=== PATIENT | female | born 1955 | race Caucasian/White ===

== ENCOUNTER 2020-05-24 10:45 | Inpatient (IN) | payer MEDICAID ==
[~2020-05-24] VITALS: Ht 160 cm; Wt 130.2 kg
--- NOTE | 2020-05-24 10:45 | NUR ---
To ER bed 3 for COVID-19 isolation, AOX4, WILLETT, respiration:easy, speaks full sentences comfortably, NAD, pending MD evaluation. Comfort & safety measures maintained. Head of bed elevated
--- NOTE | 2020-05-24 10:54 | NUR ---
pt non-cooperative, yelling, refusing interventions to be done.
--- NOTE | 2020-05-24 11:00 | NUR ---
Pt unable to provide any information about home medications.
[2020-05-24 11:38] LABS: BASOPHILS % (AUTO) 0.3 % (0.0-2.0); EOSINOPHILS % (AUTO) 0.3 % (0.0-7.0); HEMATOCRIT 36.7 % (31.2-41.9); LYMPHOCYTES # (AUTO) 0.5 K/uL (20.0-40.0); LYMPHOCYTES % (AUTO) 19.2 % (20.5-51.5); MEAN CORPUSCULAR HEMOGLOBIN 27.4 uug (24.7-32.8); MEAN CORPUSCULAR HGB CONC 33 g/dL (32.3-35.6); MEAN CORPUSCULAR VOLUME 83.7 fL (75.5-95.3); MONOCYTES # (AUTO) 0.2 K/uL (2.0-10.0); MONOCYTES % (AUTO) 9.7 % (0.0-11.0); NEUTROPHILS # (AUTO) 1.8 K/uL (1.8-8.9); NEUTROPHILS % (AUTO) 70.5 % (38.5-71.5); PLATELET COUNT (AUTO) 122 K/uL (179-408); RED BLOOD CELL COUNT(AUTO) 4.39 MIL/uL (3.63-4.92); WHITE BLOOD COUNT (AUTO) 2.5 K/uL (3.8-11.8)
[2020-05-24 11:49] LABS: CREATININE 1.6 mg/dL (0.6-1.3)
--- NOTE | 2020-05-24 11:57 | NUR ---
pt refuses to be heplocked. notified.
[2020-05-24 12:01] LABS: BILIRUBIN,DIRECT 0.1 mg/dL (0.0-0.2); BILIRUBIN,TOTAL 0.3 mg/dL (0.2-1.0)
--- NOTE | 2020-05-24 12:05 | NUR ---
called fence manufacture supervisor for picc/mid line per md order.
[2020-05-24] MEDS ORDERED: levoFLOXacin 500 MG/D5W 100ML PIGGYBACK IV ONE (12:15)
[2020-05-24] MEDS ORDERED: FUROSEMIDE 40 MG/4 ML VIAL IV ONE ×2 (12:15→13:15)
[2020-05-24] MEDS ORDERED: POTASSIUM CHLORIDE 20 MEQ TAB.PRT.SR PO ONE (12:15)
[2020-05-24] MEDS ORDERED: PIPERACILLIN SODIUM/TAZOBACTAM 3.375 G in IV DEXTROSE 5% 50 ML IV ONE (12:15)
[2020-05-24] MEDS ORDERED: DILTIAZEM HCL 25 MG IV IV ONE ×2 (12:15→17:00)
--- NOTE | 2020-05-24 12:30 | NUR ---
MARY watson at bedside to place the central line.
[2020-05-24] MEDS ORDERED: LIDOCAINE HCL 2% 20 ML VIAL ONE (12:43)
[2020-05-24] MEDS ORDERED: levoFLOXacin 500 MG/D5W 100 ML ONE (13:05)
[2020-05-24] MEDS ORDERED: POTASSIUM CHLORIDE 20 MEQ TAB.PRT.SR ONE (13:05)
[2020-05-24] MEDS ORDERED: FUROSEMIDE 40 MG/4 ML VIAL ONE (13:05)
[2020-05-24] MEDS ORDERED: DILTIAZEM HCL 25 MG IV ONE ×2 (13:06→15:16)
[2020-05-24] MEDS ORDERED: PIPERACILLIN/TAZOBACTAM/D5W 50 ML IV ONE (13:06)
[2020-05-24] MEDS ORDERED: ASPIRIN EC 81 MG TABLET.DR PO SCH (13:15)
[2020-05-24] MEDS ORDERED: MORPHINE SULFATE 2 MG/1 ML DISP.SYRIN ONE (13:27)
[2020-05-24] MEDS ORDERED: MORPHINE SULFATE 2 MG/1 ML DISP.SYRIN IV ONE (13:30)
[2020-05-24] MEDS ORDERED: ASPIRIN EC 81 MG TABLET.DR PO ONE (13:37)
[2020-05-24] MEDS ORDERED: ONDANSETRON 4 MG/2 ML VIAL IV PRN (14:00)
[2020-05-24] MEDS ORDERED: Z GUARD REMEDY PASTE 57 GM TUBE TOP PRN (14:00)
--- NOTE | 2020-05-24 14:00 | NUR ---
pt removing the pulse ox constantly, making it difficult to get accurate reading, based on the best reading waveform at this time, ra sat 93%, placed pt on nc 3litre. pt agreed to keep it on, improved the pulse ox to 98%.
--- NOTE | 2020-05-24 14:00 | NUR ---
pt accepted to tele, report given, transfer pending on elevator not working. supervisor locomotive aware.
[2020-05-24] MEDS ORDERED: NITROGLYCERIN OINT 1 GM PACKET TP ONE (14:06)
[2020-05-24] MEDS ORDERED: NITROGLYCERIN OINT 1 GM PACKET TP SCH (14:15)
--- NOTE | 2020-05-24 14:28 | NUR ---
pt keeps removing the monitor leads after being explained multiple times that it is crucial for her to be on monitoring and evaluation advisor.
--- NOTE | 2020-05-24 14:55 | NUR ---
checked on pt, found pt on her own wheelchair, trying to leave the isolation room. called nils kitchen at [phone], tried to reorient the pt.
--- NOTE | 2020-05-24 15:05 | NUR ---
code kitchen cancelled. pt agreed to go back to bed and be on monitor. pt gettting frustrated on being in er room, explained that pt will be transfered when the elevator is fixed.
[2020-05-24] MEDS ORDERED: DILTIAZEM HCL IV 125 MG in IV NORMAL SALINE 100 ML IV PRN ×2 (15:15→19:30)
--- NOTE | 2020-05-24 15:55 | NUR ---
visully checked on pt numerous time, providing comfort and hygiene care.
[2020-05-24 16:00] VITALS: BP 140/76
--- NOTE | 2020-05-24 16:00 | NUR ---
transfered pt to floor in stable condition, following hospital covid-19 guidelines. all the belongings including the wheelchair sent up to pt room.
[2020-05-24] MEDS ORDERED: LIDOCAINE HCL 2% 20 ML VIAL IJ ONE (16:30)
[2020-05-24] MEDS: PIPERACILLIN SODIUM/TAZOBACTAM 3.375 G in IV DEXTROSE 5% 50 ML IV SCH ×2 (18:33→23:09)
[2020-05-24] MEDS: MORPHINE SULFATE 2 MG/1 ML DISP.SYRIN IV PRN ×2 (18:33→23:12)
--- NOTE | 2020-05-24 19:00 | NUR ---
Pt. refusing to be put on tele monitor. Pt. refusing to have body checked for initial skin check. Educated pt. on risks and benefits. Attempted multiple times throughout shift. Pt. still refused and verbalized understanding of importance. electronic equipment set up operator aware. Central line in R groin triple lumen all lumens patent and flushing well. pt. on 2 L saturating at 98%. Safety measures in place. call light within reach. will endorse to PM nurse.
--- NOTE | 2020-05-24 19:30 | NUR ---
RECEIVED PT AWAKE, ALERT AND ORIENTEDX4. PT REFUSING HER HEART MONITOR AND SKIN CHECK. PT REFUSE FOR BLOOD PRESSURE CHECK. PT STATING: DON'T WANT IT! IT HURTS!". EDUCATE THE PT REGARDING SKIN CHECK PROTOCOL AND THE VITAL SIGNS NEED TO DONE TO ASSESS PT MORE. CHARGE NURSE AWARE. AWARE. SAFETY AND COMFORT PROVIDED. WILL CONTINUE TO MONITOR.
[2020-05-24] MEDS: HEPARIN SODIUM,PORCINE 5,000 UNITS/ML VIAL SQ SCH (21:53)
[2020-05-25 00:18] VITALS: BP 142/99
[2020-05-25] MEDS: ZOLPIDEM 5 MG TABLET PO PRN ×2 (01:08→21:22)
[2020-05-25 04:30] VITALS: BP 128/99
[2020-05-25] MEDS: PIPERACILLIN SODIUM/TAZOBACTAM 3.375 G in IV DEXTROSE 5% 50 ML IV SCH ×4 (05:02→23:43)
[2020-05-25] MEDS: MORPHINE SULFATE 2 MG/1 ML DISP.SYRIN IV PRN ×4 (05:36→22:46)
--- NOTE | 2020-05-25 06:16 | NUR ---
PT SLEPT INTERMITTENTLY. IV INTACT. PRESCRIBED MEDICATION GIVEN AND PT TOLERATED IT WELL. TRIED SEVERAL TIMES TO PUT THE THE PT ON HEART MONITOR BUT PT REFUSED STILL. ENCOURAGE PT TO CALL STAFF IF SHE WILL GO TO THE RESTROOM. PT STATED" SHE DOESN'T WANT TO WALK AND WE COULD JUST CLEAN HER IN THE BED." PT AWARE THAT WE NEED A URINE SAMPLE FROM HER. MORPHINE WS GIVEN AT 2312H. AFTER AN HOUR, PT PAIN SCALE SUBSIDED AND PT RESTING COMFORTABLY. PT GIVEN 0536H MORPHINE FOR 8/10 PAIN SCALE FOR GENERALIZED PAIN, AFTER 30 MINUTES PT SAID IT HELPS A BIT FROM 8/10 TO 5/10. PT KEEP ON REFUSING FOR VITAL SIGNS AND BLOOD. PT JUST NEED TO BE EDUCATED AND SHE WILL OBLIGE AND COOPERATE ON HER CARE. SAFETY AND COMFORT PROVIDED. ALL NEEDS ARE MET. WILL ENDORSE TO INCOMING NURSE FOR CONTINUITY OF CARE.
[2020-05-25 06:45] LABS: BASOPHILS % (AUTO) 0.3 % (0.0-2.0); EOSINOPHILS % (AUTO) 1.9 % (0.0-7.0); HEMATOCRIT 35.8 % (31.2-41.9); HEMOGLOBIN 11.8 g/dL (10.9-14.3); LYMPHOCYTES # (AUTO) 0.8 K/uL (20.0-40.0); LYMPHOCYTES % (AUTO) 37.8 % (20.5-51.5); MEAN CORPUSCULAR HEMOGLOBIN 27.4 uug (24.7-32.8); MEAN CORPUSCULAR HGB CONC 33 g/dL (32.3-35.6); MEAN CORPUSCULAR VOLUME 83.2 fL (75.5-95.3); MONOCYTES # (AUTO) 0.3 K/uL (2.0-10.0); MONOCYTES % (AUTO) 11.7 % (0.0-11.0); NEUTROPHILS % (AUTO) 48.3 % (38.5-71.5); PLATELET COUNT (AUTO) 122 K/uL (179-408); WHITE BLOOD COUNT (AUTO) 2.2 K/uL (3.8-11.8)
[2020-05-25 07:02] LABS: BILIRUBIN,TOTAL 0.4 mg/dL (0.2-1.0); CREATININE 1.5 mg/dL (0.6-1.3); MAGNESIUM 1.6 mg/dL (1.8-2.4); PHOSPHOROUS 3.5 mg/dL (2.5-4.9); POTASSIUM 2.9 mmol/L (3.5-5.1); TOTAL PROTEIN, SERUM 7.5 g/dL (6.4-8.2)
--- NOTE | 2020-05-25 07:30 | NUR ---
Received patient resting in bed. No signs of respiratory distress noted, patient is on 2 L of oxygen nasal cannula. Patient IV is a central line triple lumen. Patient reports pain of 9/10, will check eMAR for pain medication and administer as prescribed. Patient is on isolation for Covid 19. Safety precautions in place, bed in the lowest position, locked with alarm activated. Call light and belongings are within reach. Will continue to monitor and observe.
[2020-05-25 07:37] LABS: THYROID STIMULATING HORMONE 0.964 mIU/mL (0.358-3.740)
[2020-05-25] MEDS ORDERED: POTASSIUM CHLORIDE 20 MEQ POWDER PACKET PO ONE (08:15)
[2020-05-25] MEDS: ASPIRIN EC 81 MG TABLET.DR PO SCH (08:55)
[2020-05-25] MEDS: HEPARIN SODIUM,PORCINE 5,000 UNITS/ML VIAL SQ SCH ×2 (08:56→21:00)
[2020-05-25] MEDS: MAGNESIUM SULFATE/D5W 100 ML IV SCH ×2 (08:58→10:22)
[2020-05-25] MEDS: DILTIAZEM HCL CD 120 MG CAP.SR.24H PO SCH (09:14)
[2020-05-25] MEDS ORDERED: ALBUTEROL SULFATE 2.5 MG/ 0.5 ML NEBU NEB PRN (10:30)
--- NOTE | 2020-05-25 11:20 | NUR ---
SW contacted charge nurse Trang in order to arrange a ZOOM session to complete a marriage and family social worker assessment. SW was informed that patient's nurse was busy with a patient at this time, and would call this SW back to coordinate the ZOOM session. SW will follow-up if SW does not receive a call back.
[2020-05-25] MEDS ORDERED: levoFLOXacin 500 MG/D5W 500 MG in PREMIXED 1 EACH IV SCH (12:00)
[2020-05-25] MEDS ORDERED: LEVOFLOXACIN/D5W 250 MG in PREMIX 1 EA IV SCH (12:00)
[2020-05-25 12:02] VITALS: BP 138/90
--- NOTE | 2020-05-25 14:03 | NUR ---
Patient's nurse Yola set up a ZOOM session with this SW. Patient was awake and lying down in her bed. Patient's nurse introduced this SW to the patienet and SW attempted to complete a social problems specialist assessment via ZOOM, but patient stated "I don't want to talk to her". SW explained that SW was there to assess her needs and see if she had any questions/concerns about her care and about community resources, but patient once again stated "I don't want to talk to you". SW acknowledged patient's response and choice. SW informed the patient that if the patient changed her mind and wanted to speak with a SW, that she could let her nurse know. Patient expressed understanding. Per patient's medical records, patient is homeless and was staying at the [facility]. Patient is COVID positive. HAMIDA informed the patient's nurse Yola that when patient was ready for discharge, the patient would need to return to the [facility], and that the homeless discharge protocol would need to be followed. Yola expressed understanding.
[2020-05-25 15:34] VITALS: BP 147/96
--- NOTE | 2020-05-25 19:52 | NUR ---
left patient resting in bed. No signs of respiratory distress noted, patient is on 2 L of oxygen nasal cannula. Patient IV is a central line triple lumen. All medications given as ordered. Patient is on isolation for Covid 19. Safety precautions in place, bed in the lowest position, locked with alarm activated. Call light and belongings are within reach. Will endorse to oncoming nurse
--- NOTE | 2020-05-25 20:00 | NUR ---
PATIENT RECEIVED INTO CARE, LAYING IN BED, RESTING COMFORTABLY. PATIENT IS ALERT/ORIENTED X3 AND REQUESTING "MORPHINE SHOT" FOR UPSET STOMACH AND HEADACHE. THIS NURSE EXPLAINED THAT MORPHINE IS FOR SEVERE PAIN AND NOT FOR UPSET STOMACH/HEADACHE AND THAT NEXT PAIN MEDICATION IS NOT DUE UNTIL 2200H. PATIENT THEN REQUESTED TYLENOL AND NURSE ADVISED PATIENT THAT SHE WILL BE ABLE TO RECEIVE TYLENOL. ALL SAFETY, ISOLATION, AND FALL PRECAUTION MEASURES ARE IN PLACE. CALL LIGHT AND PERSONAL ITEMS ARE WITHIN REACH AT ALL TIMES. WILL CONTINUE TO MONITOR AND ASSESS.
[2020-05-25 20:21] VITALS: BP 128/77
--- NOTE | 2020-05-25 21:05 | NUR ---
PATIENT REFUSED 2100H HEPARIN. THIS NURSE EXPLAINED RISKS/BENEFITS 3X BUT PATIENT STILL REFUSED.
[2020-05-25] MEDS: ACETAMINOPHEN 325 MG TABLET PO PRN (21:22)
[2020-05-26 04:30] VITALS: BP 165/98
[2020-05-26] MEDS: PIPERACILLIN SODIUM/TAZOBACTAM 3.375 G in IV DEXTROSE 5% 50 ML IV SCH ×2 (05:05→12:00)
--- NOTE | 2020-05-26 05:31 | NUR ---
PATIENT SLEPT THROUGHOUT NIGHT WITH NO FURTHER COMPLAINTS OF PAIN OR DISCOMFORT AFTER RECEIVING PRESCRIBED ANALGESIC VIA RIGHT FEMORAL CENTRAL LINE. THIS NURSE REMINDED PATIENT TO USE CALL LIGHT WHEN NEEDS ASSISTANCE IN LIEU OF YELLING AND TO REMAIN PATIENT FOR THE LUNCHROOM OPERATOR/NURSE TO COME TO HER WE MAY BE WITH OTHERS UNDER OUR CARE THAT ARE ALSO IN NEED OF HELP. ALL SAFETY, FALL, AND ISOLATION PRECAUTIONS REMAIN IN PLACE. CALL LIGHT AND PERSONAL ITEMS REMAIN WITHIN REACH.
[2020-05-26] MEDS: MORPHINE SULFATE 2 MG/1 ML DISP.SYRIN IV PRN ×2 (06:48→10:50)
[2020-05-26] MEDS: DILTIAZEM HCL CD 120 MG CAP.SR.24H PO SCH (08:19)
[2020-05-26] MEDS: ASPIRIN EC 81 MG TABLET.DR PO SCH (08:19)
[2020-05-26] MEDS: ACETAMINOPHEN 325 MG TABLET PO PRN ×2 (08:19→23:35)
[2020-05-26] MEDS: HEPARIN SODIUM,PORCINE 5,000 UNITS/ML VIAL SQ SCH ×2 (08:25→20:47)
[2020-05-26 09:13] LABS: BASOPHILS % (AUTO) 0.3 % (0.0-2.0); EOSINOPHILS % (AUTO) 0.8 % (0.0-7.0); HEMATOCRIT 35.3 % (31.2-41.9); HEMOGLOBIN 11.5 g/dL (10.9-14.3); LYMPHOCYTES # (AUTO) 0.5 K/uL (20.0-40.0); LYMPHOCYTES % (AUTO) 24.8 % (20.5-51.5); MEAN CORPUSCULAR HEMOGLOBIN 27.5 uug (24.7-32.8); MEAN CORPUSCULAR HGB CONC 33 g/dL (32.3-35.6); MEAN CORPUSCULAR VOLUME 84.2 fL (75.5-95.3); MONOCYTES # (AUTO) 0.2 K/uL (2.0-10.0); MONOCYTES % (AUTO) 8.4 % (0.0-11.0); NEUTROPHILS # (AUTO) 1.2 K/uL (1.8-8.9); NEUTROPHILS % (AUTO) 65.7 % (38.5-71.5); PLATELET COUNT (AUTO) 109 K/uL (179-408); RED BLOOD CELL COUNT(AUTO) 4.19 MIL/uL (3.63-4.92)
[2020-05-26 09:25] LABS: BILIRUBIN,TOTAL 0.6 mg/dL (0.2-1.0); CREATININE 1.4 mg/dL (0.6-1.3); TOTAL PROTEIN, SERUM 7.4 g/dL (6.4-8.2)
[2020-05-26 09:37] LABS: POTASSIUM 2.8 mmol/L (3.5-5.1)
[2020-05-26 09:38] LABS: WHITE BLOOD COUNT (AUTO) 1.8 K/uL (3.8-11.8)
--- NOTE | 2020-05-26 09:40 | NUR ---
relayed potassium 2.8 and WBC WBC 1.8 to TRUCKING SUPERVISOR Lamonte.
[2020-05-26] MEDS ORDERED: POTASSIUM CHLORIDE 20 MEQ TAB.PRT.SR PO SCH (10:00)
[2020-05-26] MEDS: POTASSIUM CHLORIDE 50 ML IV SCH ×2 (10:05→11:07)
[2020-05-26] MEDS: HYDROCODONE/APAP 5-325MG TABLET PO PRN ×3 (10:16→20:46)
[2020-05-26 11:30] VITALS: BP 141/79
--- NOTE | 2020-05-26 12:00 | NUR ---
Patient pulled her Femoral PICC line.
[2020-05-26] MEDS: POTASSIUM CHLORIDE 20 MEQ TAB.PRT.SR PO SCH ×2 (12:43→13:46)
[2020-05-26] MEDS ORDERED: AMOX-427 PO (12:48)
--- NOTE | 2020-05-26 13:17 | NUR ---
This SW informed by LUDY Foster that patient is ready for discharge. Kristin stated that she has called [facility] ([phone], [id number], [place], [address]) several times this morning, and has not been able to connect with anyone at the [facility]. Patient is homeless and COVID positive, was transferred to this hospital from [facility]. Patient would need to return to The [facility]. This SW called the [facility] Quarantine and Isolation Intake Call Center [phone] and spoke with Veronica. Veronica opened a case ticket for this patient, # [id number], and informed this SW that a health nurse would call this social sciences lecturer back with further instructions. SW will follow-up with the intake line if SW does not receive a call back. SW informed LUDY Foster and med/surg charge nurse Trang about above.
--- NOTE | 2020-05-26 13:30 | NUR ---
Placed patient on Room air, patient saturating 94-96%. No SOB noted.
--- NOTE | 2020-05-26 13:39 | NUR ---
1:28pm: received a call back from [facility] nurse Sofia Mo [phone] in response to this SW's call to the [facility] Quarantine and Isolation Intake Call Center (see previous SS note). Sofia requested patient's name, , and reason for hospitalization, and stated that she will have to look into the patient's quarantine time period to see how long the patient has been at The [facility] and if the patient still has quarantine days remaining in order to be able to return. Sofia stated that she would call this SW back with additional information.
[2020-05-26 13:44] LABS: NEUTROPHILS % (MANUAL) 83 % (42-75)
[2020-05-26 13:45] LABS: BAND % (MANUAL) 10 % (0-10); LYMPHOCYTES % (MANUAL) 5 % (20-40); MONOCYTES % (MANUAL) 2 % (2-10)
--- NOTE | 2020-05-26 13:53 | NUR ---
1:49pm: HAMIDA received a call back from [facility] nurse Sofia Mo, who stated that after speaking with Melissa Vazquez, the coordinator who is assigned to [facility], it was founded that patient had not been independent with her ADL's (which is a requirement for these placements) and therefore patient would not be able to return to the [facility]. HAMIDA informed LUDY Foster about above.
--- NOTE | 2020-05-26 15:00 | NUR ---
Patient in bed, awake and verbally responsive. no signs of distress noted. On Room Air saturating 94-96%. Pain medication given as ordered. kept clean and comfortable. Kept the call light within easy reach. Will continue to monitor.
[2020-05-26 15:32] VITALS: BP 139/79
--- NOTE | 2020-05-26 17:30 | NUR ---
Discharge was cancelled today. SW spoke with Patient. Will continue to monitor.
--- NOTE | 2020-05-26 17:35 | NUR ---
4:40pm: HAMIDA assisted LUDY Foster with trying to coordinate DC plans for this patient to be able to return to [facility], where patient had been placed by [facility] for COVID-19 quarantine period. Per Kristin, [facility] had stated that patient could not return to the [facility] because patient did not meet their eligibility criteria (see CM notes). This SW called and spoke with [facility] nurse Oj [phone] to discuss patient's return to the [facility]. Oj informed this SW that per review of patient's medical records, the physician reviewing the eligibility criteria stated that patient is not independent with her ADL's and therefore does not meet eligibility. Oj stated that she had send LUDY Foster alternate placement options of SNF's. HAMIDA explained to Oj that patient did not have a skilled need to qualify for a SNF, and requested to speak with a nurse caddy/caddie supervisor. Oj stated she will coordinate this SW's request. 5:17pm: HAMIDA received a call from [facility] Nurse Daisy Chamberlain, who is the Auto Body Repairer of the Quarantine Call Center. Daisy [phone] expressed familiarity with this case, and once again reiterated that due to patient not being independent with her ADL's, the patient does not qualify to return to The [facility]. Daisy reviewed the eligibility criteria with this SW, and stated that she would email the eligibility criteria to this SW. This SW thanked Daisy for her time. 5:30pm: HAMIDA spoke with LUDY Foster and informed her of above. LUDY Foster to speak with patient's attending physician and the patient to discuss alternate discharge plans. HAMIDA informed Director Pauly Friedman of above.
--- NOTE | 2020-05-26 18:16 | NUR ---
Patient in bed, awake, alert and verbally responsive. constantly shouting. On Room Air saturating 96%. pain medications given as ordered. Changed IV ATB to PO by Lamonte LENS EDGE GRINDER MACHINE. Kept clean and comfortable. Will endorse to Oncoming Nurse.
--- NOTE | 2020-05-26 19:20 | NUR ---
Received pt in bed, awake. Pt denies any SOB, but complains of generalized pain at 8/10. Will assess and give PRN pain medication. Pt is afebrile. V/S stable, on 3L NC saturating at 96%. Right femoral PICC line was removed by pt, per day shift nurse's report. Will request to re-insert a new one. Safety measures in place. Bed low and locked in position. Call light within reach will continue with the plan of care.
[2020-05-26 20:35] VITALS: BP 131/98
[2020-05-26] MEDS: AMOXICILLIN-CLAVUL 500-125MG TABLET PO SCH (20:46)
[2020-05-27] MEDS: HYDROCODONE/APAP 5-325MG TABLET PO PRN ×3 (02:26→12:06)
[2020-05-27 05:34] VITALS: BP 139/99
--- NOTE | 2020-05-27 06:52 | NUR ---
Pt slept intermittently through the night. Pt is awake and denies any acute distress or pain at this time. Pt is afebrile. VS stable, on 3L NC. Pain was managed effectively. Fall precaution maintained. Comfort care and needs attended. Safety measures in place. Bed low and locked in position. Call light within reach. Will endorse to the oncoming nurse accordingly.
[2020-05-27 07:48] LABS: BASOPHILS % (AUTO) 0.3 % (0.0-2.0); EOSINOPHILS % (AUTO) 1.4 % (0.0-7.0); HEMATOCRIT 36.4 % (31.2-41.9); LYMPHOCYTES # (AUTO) 0.7 K/uL (20.0-40.0); LYMPHOCYTES % (AUTO) 41.6 % (20.5-51.5); MEAN CORPUSCULAR HEMOGLOBIN 27.8 uug (24.7-32.8); MEAN CORPUSCULAR HGB CONC 33 g/dL (32.3-35.6); MEAN CORPUSCULAR VOLUME 84.2 fL (75.5-95.3); MONOCYTES # (AUTO) 0.2 K/uL (2.0-10.0); NEUTROPHILS # (AUTO) 0.8 K/uL (1.8-8.9); NEUTROPHILS % (AUTO) 45.7 % (38.5-71.5); PLATELET COUNT (AUTO) 117 K/uL (179-408); RED BLOOD CELL COUNT(AUTO) 4.32 MIL/uL (3.63-4.92)
[2020-05-27 07:53] LABS: CREATININE 1.2 mg/dL (0.6-1.3); MAGNESIUM 2.3 mg/dL (1.8-2.4); PHOSPHOROUS 3.3 mg/dL (2.5-4.9); POTASSIUM 3.9 mmol/L (3.5-5.1)
[2020-05-27 08:00] VITALS: BP 153/101
[2020-05-27] MEDS: ASPIRIN EC 81 MG TABLET.DR PO SCH (08:12)
[2020-05-27] MEDS: AMOXICILLIN-CLAVUL 500-125MG TABLET PO SCH ×2 (08:12→20:15)
[2020-05-27] MEDS: DILTIAZEM HCL CD 120 MG CAP.SR.24H PO SCH (08:12)
[2020-05-27] MEDS: ACETAMINOPHEN 325 MG TABLET PO PRN ×2 (08:13→17:49)
[2020-05-27] MEDS: HEPARIN SODIUM,PORCINE 5,000 UNITS/ML VIAL SQ SCH ×2 (08:14→20:18)
--- NOTE | 2020-05-27 08:55 | NUR ---
Received pt. screaming yelling and demanding food, pain medication, and repeating statements over and over. As reported pt. with no IV access since yesterday noon. Awaiting picc line rn. Patient educated stone polisher hand light use, her response was throwing call light on the floor, pt's room found soiled with stool all over the floor and side rails. Patient's needs taken care of and room cleaned, pt now resting quietly. Will continue with care plan.
[2020-05-27 09:00] LABS: WHITE BLOOD COUNT (AUTO) 1.7 K/uL (3.8-11.8)
[2020-05-27 11:30] VITALS: BP 149/89
[2020-05-27] MEDS ORDERED: LORAZEPAM 1 MG TABLET PO PRN (12:45)
[2020-05-27] MEDS: MORPHINE SULFATE 2 MG/1 ML DISP.SYRIN IV PRN ×2 (15:03→20:15)
[2020-05-27 16:00] VITALS: BP 123/84
[2020-05-27 17:48] LABS: BAND % (MANUAL) 5 % (0-10); EOSINOPHILS % (MANUAL) 1 % (0-8); LYMPHOCYTES % (MANUAL) 38 % (20-40); MONOCYTES % (MANUAL) 9 % (2-10); NEUTROPHILS % (MANUAL) 47 % (42-75)
--- NOTE | 2020-05-27 18:42 | NUR ---
Patient left in room resting medicated for pain around the clock. Iv line patent. tolerating diet well with no n/v. Patient with on/off periods of agitation screaming.
--- NOTE | 2020-05-27 19:10 | NUR ---
Pt in bed, screaming and yelling, demanding for pain medication and snacks. Pt. is afebrile and V/S stable on 3L NC. Pt. denies SOB/chest pain. Will attend to her needs, and give prescribed medications. Safety measures in place. Call light within reach. Bed low and locked in position. Will continue with the plan of care.
[2020-05-27 20:00] VITALS: BP 140/88
[2020-05-28] MEDS: HYDROCODONE/APAP 5-325MG TABLET PO PRN (00:37)
[2020-05-28] MEDS: ACETAMINOPHEN 325 MG TABLET PO PRN (00:45)
[2020-05-28] MEDS: MORPHINE SULFATE 2 MG/1 ML DISP.SYRIN IV PRN (04:02)
[2020-05-28 06:25] VITALS: BP 130/69
--- NOTE | 2020-05-28 06:37 | NUR ---
Pt slept intermittently through the night. Pt was screaming and yelling on/off always demand for pain medications. Pt awake, denies SOB/CP, but always complaining of pain. V/S stable, on 3L NC. Pt is afebrile. Comfort care and needs attended. Pain was managed effectively. Fall precaution maintained. Kept dry and clean. Safety measures in place. Call light within reach. Will endorse to the oncoming nurse accordingly.
[2020-05-28 08:00] VITALS: BP 135/75
[2020-05-28] MEDS: DILTIAZEM HCL CD 120 MG CAP.SR.24H PO SCH (08:00)
[2020-05-28] MEDS: AMOXICILLIN-CLAVUL 500-125MG TABLET PO SCH (08:00)
[2020-05-28] MEDS: ASPIRIN EC 81 MG TABLET.DR PO SCH (08:00)
[2020-05-28] MEDS: HEPARIN SODIUM,PORCINE 5,000 UNITS/ML VIAL SQ SCH (08:01)
[2020-05-28 08:25] LABS: BASOPHILS % (AUTO) 0.4 % (0.0-2.0); EOSINOPHILS % (AUTO) 1.6 % (0.0-7.0); HEMATOCRIT 37.6 % (31.2-41.9); HEMOGLOBIN 12.3 g/dL (10.9-14.3); LYMPHOCYTES # (AUTO) 0.9 K/uL (20.0-40.0); LYMPHOCYTES % (AUTO) 32.5 % (20.5-51.5); MEAN CORPUSCULAR HEMOGLOBIN 27.8 uug (24.7-32.8); MEAN CORPUSCULAR HGB CONC 33 g/dL (32.3-35.6); MEAN CORPUSCULAR VOLUME 84.9 fL (75.5-95.3); MONOCYTES # (AUTO) 0.3 K/uL (2.0-10.0); MONOCYTES % (AUTO) 10.8 % (0.0-11.0); NEUTROPHILS # (AUTO) 1.4 K/uL (1.8-8.9); NEUTROPHILS % (AUTO) 54.7 % (38.5-71.5); PLATELET COUNT (AUTO) 135 K/uL (179-408); RED BLOOD CELL COUNT(AUTO) 4.43 MIL/uL (3.63-4.92); WHITE BLOOD COUNT (AUTO) 2.6 K/uL (3.8-11.8)
[2020-05-28 08:45] LABS: BILIRUBIN,TOTAL 0.4 mg/dL (0.2-1.0); CREATININE 1.2 mg/dL (0.6-1.3); MAGNESIUM 2.3 mg/dL (1.8-2.4); PHOSPHOROUS 2.8 mg/dL (2.5-4.9)
--- NOTE | 2020-05-28 11:45 | NUR ---
Family Helper notified pt wants to leave AMA. Notified Dr cuevas as well that pt wants to leave AMA. Ferdinand Cuevas states that pt will be discharge as prior from Friday.
--- NOTE | 2020-05-28 11:50 | NUR ---
PT alert and oriented x 3. Pt discharge to self. Prescription given to patient for Augmentin. Gave TAP card to patient. Pt refused homeless resource packet. Midline taken off. Spoke with CM. Per CM pt is cleared by [facility] for [facility] to be released. PT has her own clothes and offered shoes and non slip socks. pt refused offer. Pt in a hurry to leave hospital. Discharge packet given to patient but pt refused to sign. Instructed pt to wear her mask.
[2020-05-31 06:06] LABS: A/G RATIO 0.8 (0.7-1.7); ALPHA-1-GLOBULIN 0.4 g/dL (0.0-0.4); ALPHA-2-GLOBULIN 0.9 g/dL (0.4-1.0); BETA GLOBULIN 0.8 g/dL (0.7-1.3); GAMMA GLOBULIN 1.6 g/dL (0.4-1.8); GLOBULIN, TOTAL 3.7 g/dL (2.2-3.9); M-SPIKE Not Observed g/dL (Not Observed)
== END 2020-05-28 11:30 | disposition home or self-care (01) | DRG 139 ==
LOC: ER 10:45 → TELE3 13:55 → MEDSURG3 05-25 09:25
PROVIDERS: ADMIT Hospitalist; ATTEND Hospitalist
PROC: 06HY33Z Insertion of Infusion Device into Lower Vein, Percutaneous Approach (ICD-10-PCS; principal; 2020-05-24)
PROC: 05H633Z Insertion of Infusion Device into Left Subclavian Vein, Percutaneous Approach (ICD-10-PCS; 2020-05-27)
PROC: B547ZZA Ultrasonography of Left Subclavian Vein, Guidance (ICD-10-PCS; 2020-05-27)
DX: J12.9 Viral pneumonia, unspecified (principal); E87.6 Hypokalemia; E87.2 Acidosis; N17.0 Acute kidney failure with tubular necrosis; Z68.43 Body mass index [BMI] 50.0-59.9, adult; I50.31 Acute diastolic (congestive) heart failure; E66.2 Morbid (severe) obesity with alveolar hypoventilation; E83.42 Hypomagnesemia; E44.1 Mild protein-calorie malnutrition; I48.91 Unspecified atrial fibrillation; E88.09 Other disorders of plasma-protein metabolism, not elsewhere classified; J44.9 Chronic obstructive pulmonary disease, unspecified; D69.6 Thrombocytopenia, unspecified; I13.0 Hypertensive heart and chronic kidney disease with heart failure and stage 1 through stage 4 chronic kidney disease, or unspecified chronic kidney disease; N18.9 Chronic kidney disease, unspecified; G93.40 Encephalopathy, unspecified; J15.9 Unspecified bacterial pneumonia; Z86.19 Personal history of other infectious and parasitic diseases; D72.819 Decreased white blood cell count, unspecified; J44.0 Chronic obstructive pulmonary disease with (acute) lower respiratory infection
CPT/HCPCS: 36415; 36556; 70030-TC; 71045; 83605; 83735; 83970; 84100; 84155; 84165; 84443; 85025; 85730; 86140; 87040; 93005; A4663; G0378; J1644; J1940; J1956; J2270; J2543; J3475; J3480; J3490; J7040; J7060